=== PATIENT | female | born 1990 | race Caucasian/White ===

== ENCOUNTER 2023-05-26 10:17 | Emergency (ER) | payer SELFPAY ==
[~2023-05-26] VITALS: Ht 154.9 cm; Wt 61.2 kg
[2023-05-26] MEDS ORDERED: ALBU8.5H8 IH (10:26)
[2023-05-26 10:54] LABS: BILIRUBIN,DIRECT 0.2 mg/dL (0.0-0.2); BILIRUBIN,TOTAL 0.4 mg/dL (0.2-1.0); CALCIUM 8.3 mg/dL (8.5-10.1); CREATININE 0.6 mg/dL (0.6-1.3); POTASSIUM 3.4 mmol/L (3.5-5.1); TOTAL PROTEIN, SERUM 7.4 g/dL (6.4-8.2)
[2023-05-26 11:11] VITALS: BP 104/63
[2023-05-26 11:13] LABS: DIFFERENTIAL COMMENT 0; MEAN CORPUSCULAR HEMOGLOBIN 31.5 uug (24.7-32.8); NEUTROPHILS # (AUTO) 2.6 K/uL (1.8-8.9); WHITE BLOOD COUNT (AUTO) 5.3 K/uL (3.8-11.8)
[2023-05-26 11:23] LABS: BASOPHILS % (AUTO) 0.7 % (0.0-2.0); EOSINOPHILS # (AUTO) 0.4 K/uL (0.0-0.7); EOSINOPHILS % (AUTO) 6.8 % (0.0-7.0); HEMATOCRIT 40.7 % (31.2-41.9); HEMOGLOBIN 14.1 g/dL (10.9-14.3); LYMPHOCYTES # (AUTO) 1.8 K/uL (0.8-4.8); LYMPHOCYTES % (AUTO) 33.4 % (20.5-51.5); MEAN CORPUSCULAR HGB CONC 35 g/dL (32.3-35.6); MEAN CORPUSCULAR VOLUME 91.2 fL (75.5-95.3); MONOCYTES # (AUTO) 0.5 K/uL (0.1-1.30); MONOCYTES % (AUTO) 10.3 % (0.0-11.0); NEUTROPHILS % (AUTO) 48.8 % (38.5-71.5); PLATELET COUNT (AUTO) 156 K/uL (179-408); RED BLOOD CELL COUNT(AUTO) 4.47 MIL/uL (3.63-4.92); RED CELL DISTRIBUTION WIDTH 13.1 % (12.3-17.7)
[2023-05-26 11:30] LABS: *BILIRUBIN,URIN NEGATIVE (NEGATIVE); *BLOOD, URINE NEGATIVE (NEGATIVE); *CLARITY,URINE CLEAR (CLEAR); *COLOR,URINE YELLOW (YELLOW); *KETONES,URINE 2+ (NEGATIVE); *PROTEIN,URINE NEGATIVE (NEGATIVE); *UROBILINOGEN,URINE 0.2 E.U./dl (NORMAL); LEUKOCYTE ESTERASE ,URINE NEGATIVE (NEGATIVE); NITRITE, URINE NEGATIVE (NEGATIVE); PH,URINE 6.5 (5.0-8.0); UGLUCOSE NEGATIVE (NEGATIVE)
[2023-05-26] MEDS ORDERED: ONDANSETRON 4 MG/2 ML VIAL ONE (11:43)
[2023-05-26] MEDS ORDERED: LIDOCAINE VISCUS 2% 15 ML UDC ONE (11:43)
[2023-05-26] MEDS ORDERED: MAG HYDROX/AL HYDROX/SIMETH 30 ML LIQUID UDC ONE (11:43)
[2023-05-26] MEDS ORDERED: FAMOTIDINE. 20 MG/2 ML VIAL IV ONE (11:44)
[2023-05-26 11:52] LABS: *URINE HCG, QUAL NEGATIVE (NEGATIVE)
[2023-05-26 11:54] LABS: BACTERIA,URINE NONE SEEN /HPF (NONE SEEN); RBC,URINE 0-3 /HPF (0-3); SQUAMOUS EPITHELIAL CELL,UR FEW /HPF (NONE SEEN); WBC,URINE 0-3 /HPF (0-3)
[2023-05-26] MEDS: IV NORMAL SALINE 1000 ML BAG IV ONE (12:02)
[2023-05-26] MEDS: LIDOCAINE VISCUS 2% 15 ML UDC MM ONE (12:03)
[2023-05-26] MEDS: FAMOTIDINE. 20 MG/2 ML VIAL IV ONE (12:03)
[2023-05-26] MEDS: ONDANSETRON 4 MG/2 ML VIAL IV ONE (12:03)
[2023-05-26] MEDS: MAG HYDROX/AL HYDROX/SIMETH 30 ML LIQUID UDC PO ONE (12:03)
[2023-05-26] MEDS ORDERED: FAMO-132 PO (12:59)
[2023-05-26] MEDS ORDERED: ONDA4TAB5 PO (12:59)
[2023-05-26 13:30] VITALS: O2SAT 98
== END 2023-05-26 13:33 | disposition home or self-care (01) ==
LOC: ER 10:20
DX: R10.13 Epigastric pain (principal); R11.2 Nausea with vomiting, unspecified; R19.7 Diarrhea, unspecified; J45.909 Unspecified asthma, uncomplicated; R10.2 Pelvic and perineal pain; F11.90 Opioid use, unspecified, uncomplicated; Z79.899 Other long term (current) drug therapy; Z60.2 Problems related to living alone
CPT/HCPCS: 36415; 83690; 84703; 85025; A4606; A4663; J2405; J3490; J7040